=== PATIENT | male | born 1980 | race Two or more races ===

== ENCOUNTER 2023-09-20 12:37 | Emergency (ER) | payer OTHER ==
[2023-09-20] MEDS ORDERED: BACITRACIN ZINC 15 GM TUBE TOPICAL OINTMENT ONE (13:46)
[2023-09-20] MEDS ORDERED: DIPHTH,PERTUSS(ACELL),TET 0.5 ML DISP.SYRIN IM ONE (13:52)
[2023-09-20 14:03] VITALS: BP 110/76; PULSE 73; RESP 20; TEMP 98.6; BMI 36.6
== END 2023-09-20 14:02 | disposition home or self-care (01) ==
LOC: JERFT 12:37
PROC: 0XQWXZZ Repair Left Little Finger, External Approach (ICD-10-PCS; principal; 2023-09-20)
DX: S61.217A Laceration without foreign body of left little finger without damage to nail, initial encounter (principal); W31.2XXA Contact with powered woodworking and forming machines, initial encounter
CPT/HCPCS: 82962; 99282-25